=== PATIENT | male | born 1990 | race Caucasian/White ===

== ENCOUNTER 2020-01-09 03:05 | Emergency (ER) | payer OTHER ==
[~2020-01-09] VITALS: Ht 165.1 cm; Wt 73.5 kg
[2020-01-09 03:11] VITALS: BP 179/113
--- NOTE | 2020-01-09 03:22 | NUR ---
PT TAKEN TO BED 7
--- NOTE | 2020-01-09 03:39 | NUR ---
PT C/O PALPATIONS AND HEART FLUTTERING X 2 HRS. PT FEELS CHEST TIGHTNESS AND FEELS LIKE HIS HEART IS "COLD". FEELS WEAK AND HAS N/T TO LEFT SIDE OF BODY. DENIES SOB. DENIES N/V BUT HAS HAD 2 DAIRRHEA STOOLS THIS MORNING. PT PLACED ON BEDSIDE MONITOR. BED IN LOWEST POSITION AND SIDERAIL UP X 1. NKA HX - HTN, HLD
--- NOTE | 2020-01-09 03:43 | NUR ---
Dr. aRya examining patient.
--- NOTE | 2020-01-09 04:17 | NUR ---
ekg performed at bedside. ekg reads sinus rhythm @ 65
--- NOTE | 2020-01-09 04:20 | NUR ---
X-Ray at bedside.
[2020-01-09 04:33] LABS: BASOPHILS # (AUTO) 0.1 K/uL (0.00-0.22); BASOPHILS % (AUTO) 0.9 % (0.0-2.0); EOSINOPHILS # (AUTO) 0.1 K/uL (0-0.4); EOSINOPHILS % (AUTO) 0.6 % (0.0-4.0); HEMATOCRIT 46.8 % (36-52); HEMOGLOBIN 16.4 g/dL (12.0-18.0); LYMPHOCYTES # (AUTO) 3.1 K/uL (2.0-11.5); LYMPHOCYTES % (AUTO) 37.4 % (20.5-51.1); MEAN CORPUSCULAR HEMOGLOBIN 33 pg (27-31); MEAN CORPUSCULAR HGB CONC 35 g/dL (33-37); MEAN CORPUSCULAR VOLUME 93.1 fL (80-94); MONOCYTES # (AUTO) 0.8 K/uL (0.8-1.0); MONOCYTES % (AUTO) 9.6 % (1.7-9.3); NEUTROPHILS # (AUTO) 4.3 K/uL (1.8-7.7); NEUTROPHILS % (AUTO) 51.5 % (42.2-75.2); PLATELET COUNT (AUTO) 253 K/uL (140-450); RED BLOOD CELL COUNT(AUTO) 5.03 MIL/uL (4.20-6.10); RED CELL DISTRIBUTION WIDTH 13.7 % (11.6-13.7); WHITE BLOOD COUNT (AUTO) 8.3 K/uL (4.8-10.8)
[2020-01-09 04:41] LABS: ALBUMIN 3.8 g/dL (3.4-5.0); ANION GAP 13.3 (8-16); CARBON DIOXIDE 25.2 mmol/L (21-32); POTASSIUM 3.5 mmol/L (3.5-5.1); TOTAL BILIRUBIN 0.9 mg/dL (0.0-1.0)
[2020-01-09 05:37] VITALS: BP 140/95
--- NOTE | 2020-01-09 05:37 | NUR ---
Patient discharged with v/s stable. Written and verbal after care instructions given and explained. Patient verbalized understanding. Ambulatory with steady gait. All questions addressed prior to discharge. Advised to follow up with PMD.
== END 2020-01-09 05:37 | disposition home or self-care (01) ==
LOC: MED 03:05
DX: R00.2 Palpitations (principal); R07.9 Chest pain, unspecified; E78.5 Hyperlipidemia, unspecified; I10 Essential (primary) hypertension; Z79.899 Other long term (current) drug therapy
CPT/HCPCS: 36415; 71045; 80053; 83690; 83880; 84484; 85025; 93005; 99285; Q0092

== ENCOUNTER 2020-11-19 21:29 | Emergency (ER) | payer OTHER ==
[~2020-11-19] VITALS: Ht 165.1 cm; Wt 71.2 kg
[2020-11-19 21:37] VITALS: BP 170/92
--- NOTE | 2020-11-19 21:55 | NUR ---
AMBULATED TO RESTROOM.
--- NOTE | 2020-11-19 21:59 | NUR ---
AMBULATED TO LOBBY WITH STEADY AND EVEN GAIT.
[2020-11-19] MEDS ORDERED: CLONIDINE HYDROCHLORIDE 0.1 MG TAB PO ONE (23:45)
[2020-11-20 00:05] LABS: APPEARANCE,URINE CLEAR (CLEAR); BILIRUBIN,URINE NEGATIVE (NEGATIVE); BLOOD, URINE 1+ (NEGATIVE); COLOR,URINE DARK YELLOW (YELLOW); LEUKOCYTE ESTERASE ,URINE NEGATIVE (NEGATIVE); NITRITE, URINE NEGATIVE (NEGATIVE); UGLUCOSE NEGATIVE (NEGATIVE)
[2020-11-20 00:14] LABS: BASOPHILS # (AUTO) 0.1 K/uL (0.00-0.22); BASOPHILS % (AUTO) 0.5 % (0.0-2.0); EOSINOPHILS % (AUTO) 0.3 % (0.0-4.0); HEMOGLOBIN 17.7 g/dL (12.0-18.0); LYMPHOCYTES # (AUTO) 2.7 K/uL (2.0-11.5); LYMPHOCYTES % (AUTO) 21.3 % (20.5-51.1); MEAN CORPUSCULAR HEMOGLOBIN 33 pg (27-31); MEAN CORPUSCULAR HGB CONC 35 g/dL (33-37); MEAN CORPUSCULAR VOLUME 95.4 fL (80-94); MONOCYTES % (AUTO) 7.7 % (1.7-9.3); NEUTROPHILS # (AUTO) 8.9 K/uL (1.8-7.7); NEUTROPHILS % (AUTO) 70.2 % (42.2-75.2); PLATELET COUNT (AUTO) 266 K/uL (140-450); RED BLOOD CELL COUNT(AUTO) 5.35 MIL/uL (4.20-6.10); RED CELL DISTRIBUTION WIDTH 12.9 % (11.6-13.7); WHITE BLOOD COUNT (AUTO) 12.6 K/uL (4.8-10.8)
--- NOTE | 2020-11-20 00:21 | NUR ---
PT AMBULATED TO TRIAGE FOR MEDICATION ADMINISTRATION.
[2020-11-20 00:24] LABS: ALBUMIN 3.8 g/dL (3.4-5.0); ANION GAP 9.8 (8-16); CARBON DIOXIDE 29.9 mmol/L (21-32); POTASSIUM 3.7 mmol/L (3.5-5.1); TOTAL BILIRUBIN 0.7 mg/dL (0.0-1.0)
--- NOTE | 2020-11-20 00:27 | NUR ---
PT TAKEN TO CT VIA W.C.
[2020-11-20 00:44] LABS: RBC,URINE 0-5 /HPF (0-5)
[2020-11-20 00:45] LABS: WBC,URINE 0-5 /HPF (0-5)
[2020-11-20] MEDS ORDERED: PANTOPRAZOLE 40 MG INJ VIAL IVP ONE (01:10)
--- NOTE | 2020-11-20 01:10 | NUR ---
MEDICATED PER [facility] ORDER, TOLERATED WELL
[2020-11-20] MEDS ORDERED: cefTRIAXone 1,000 MG VIAL ONE (01:36)
[2020-11-20] MEDS ORDERED: PANT40EC PO (02:04)
[2020-11-20] MEDS ORDERED: CEPH500C16 PO (02:04)
[2020-11-20] MEDS ORDERED: AMLO-271 PO (02:36)
[2020-11-20] MEDS ORDERED: [UNRECOGNIZED DRUG - CODE] PO (02:36)
[2020-11-20 02:50] VITALS: BP 178/98
--- NOTE | 2020-11-20 02:50 | NUR ---
Patient discharged with v/s stable. Written and verbal after care instructions given and explained. Patient alert, oriented and verbalized understanding of instructions. Ambulatory with steady gait. All questions addressed prior to discharge. ID band removed. Patient advised to follow up with PMD. Rx of KEFLEX, AMLODIPINE BESYLATE, CLONIDINE HCL, PROTONIX given. Patient educated on indication of medication including possible reaction and side effects. Opportunity to ask questions provided and answered.
== END 2020-11-20 02:50 | disposition home or self-care (01) ==
LOC: MED 21:29
DX: K92.1 Melena (principal); N39.0 Urinary tract infection, site not specified; I10 Essential (primary) hypertension; Z79.899 Other long term (current) drug therapy
CPT/HCPCS: 36415; 74176; 80053; 81001; 85025; 86900; 86901; 96365; 96375; 99284; C9113; J0696